=== PATIENT | female | born 1980 | race Caucasian/White ===

== ENCOUNTER → 2017-01-06 | Outpatient (CLI) | payer SELFPAY ==
--- NOTE | 2017-01-06 15:01 | DI ---
LEFT FOOT, 01/06/2017 8:54 AM: Clinical History: Left foot pain. Previous Exam: None at this facility. 3 views are submitted. There is no acute fracture or dislocation. The IP joint of the great toe is pr ominent and this may be secondary to a large joint effusion. Reading: The IP joint of the great toe is prominent in size and may be secondary to a large joint effusion. Th e remainder of the exam is normal.
== END ==
LOC: MOB RAD 09:55
PROVIDERS: ATTEND Physician Assistant
DX: M79.672 Pain in left foot (principal); S97.82XA Crushing injury of left foot, initial encounter; W55.29XA Other contact with cow, initial encounter
CPT/HCPCS: 73630